=== PATIENT | female | born 1990 | race Two or more races ===

== ENCOUNTER 2022-05-18 16:39 | Emergency (ER) | payer OTHER ==
[~2022-05-18] VITALS: Ht 154.9 cm; Wt 54.4 kg
[2022-05-18] MEDS ORDERED: PRENA1 TRUE CO1 EACH PO (17:00)
== END 2022-05-18 22:13 | disposition home or self-care (01) ==
LOC: ER 16:39
DX: O20.9 Hemorrhage in early pregnancy, unspecified (principal); Z3A.15 15 weeks gestation of pregnancy

== ENCOUNTER 2022-05-23 01:57 | Emergency (ER) | payer OTHER ==
[~2022-05-23] VITALS: Ht 157.5 cm; Wt 52.2 kg
[~2022-05-23 01:57] MED LIST: PRENA1 TRUE CO1 EACH PO
== END 2022-05-23 09:54 | disposition home or self-care (01) ==
LOC: ER 01:57
DX: O26.899 Other specified pregnancy related conditions, unspecified trimester (principal); R00.2 Palpitations; Z88.8 Allergy status to other drugs, medicaments and biological substances

== ENCOUNTER 2022-06-30 23:50 | Outpatient (CLI) | payer OTHER ==
[2022-07-01] MEDS ORDERED: PROBIOTIC250 MG (06:11)
[2022-07-01] MEDS ORDERED: IRON236 MG (06:11)
== END 2022-07-01 11:30 | disposition home or self-care (01) ==
LOC: OBS/DEL 23:50
PROVIDERS: ATTEND Obstetrics & Gynecology
DX: O23.32 Infections of other parts of urinary tract in pregnancy, second trimester (principal); N39.0 Urinary tract infection, site not specified; Z3A.21 21 weeks gestation of pregnancy

== ENCOUNTER 2022-07-16 08:14 | Outpatient (CLI) | payer OTHER ==
[~2022-07-16 08:14] MED LIST changes: +IRON236 MG; +PROBIOTIC250 MG
== END 2022-07-16 08:17 | disposition home or self-care (01) ==
LOC: NUCLEAR 08:14
PROVIDERS: ATTEND Internal Medicine
DX: I34.1 Nonrheumatic mitral (valve) prolapse (principal); I34.0 Nonrheumatic mitral (valve) insufficiency; Z34.92 Encounter for supervision of normal pregnancy, unspecified, second trimester; R00.2 Palpitations

== ENCOUNTER 2022-07-17 15:47 | Outpatient (CLI) | payer OTHER | END 2022-07-17 15:51 | disposition home or self-care (01) | LOC: LAB 15:47 | PROVIDERS: ATTEND Urology | DX: N30.00 Acute cystitis without hematuria (principal) ==

== ENCOUNTER 2022-09-26 08:36 | Outpatient (CLI) | payer OTHER | END 2022-09-26 09:13 | disposition home or self-care (01) | LOC: NST 08:36 | PROVIDERS: ATTEND Obstetrics & Gynecology Maternal & Fetal Medicine | DX: Z34.83 Encounter for supervision of other normal pregnancy, third trimester (principal) ==

== ENCOUNTER 2022-11-02 04:44 | Inpatient (IN) | payer OTHER ==
[~2022-11-02] VITALS: Ht 154.9 cm; Wt 63.0 kg
== END 2022-11-04 14:55 | disposition home or self-care (01) | DRG 807 ==
LOC: LDR 04:44 → OB/GYN 13:54 → SURG 11-06 10:05
PROVIDERS: ADMIT Obstetrics & Gynecology Maternal & Fetal Medicine; ATTEND Obstetrics & Gynecology Maternal & Fetal Medicine
PROC: 10E0XZZ Delivery of Products of Conception, External Approach (ICD-10-PCS; principal; 2022-11-02)
PROC: 0KQM0ZZ Repair Perineum Muscle, Open Approach (ICD-10-PCS; 2022-11-02)
PROC: 4A1HXCZ Monitoring of Products of Conception, Cardiac Rate, External Approach (ICD-10-PCS; 2022-11-02)
DX: O70.1 Second degree perineal laceration during delivery (principal); Z37.0 Single live birth; Z3A.39 39 weeks gestation of pregnancy; Z20.822 Contact with and (suspected) exposure to COVID-19